=== PATIENT | male | born 1975 | race Caucasian/White ===

== ENCOUNTER 2020-08-01 13:52 | Emergency (ER) | payer BC ==
[2020-08-01 14:38] LABS: BASO # 0.1 10*3/uL (0.0-0.1); BASO % 0.5 % (0.0-1.0); EOS # 0.1 10*3/uL (0.0-0.4); EOS % 0.9 % (1.0-4.0); HEMATOCRIT 44.5 % (42.0-52.0); LYMPH # 1.2 10*3/uL (1.3-4.4); LYMPH % 12.9 % (27.0-41.0); MEAN CELL VOLUME 85.2 fl (80.0-94.0); MEAN CORPUSCULAR HGB 28.7 pg (27.0-31.0); MEAN CORPUSCULAR HGB CONC 33.7 g/dl (33.0-37.0); MONO # 0.6 10*3/uL (0.1-1.0); MONO % 5.9 % (3.0-9.0); NEUT # 7.4 10*3/uL (2.3-7.9); NEUT % 79.2 % (47.0-73.0); PLATELET COUNT AUTOMATED 280 10*3/uL (130-400); RED BLOOD COUNT 5.22 10*6/uL (4.50-5.90); RED CELL DISTRI WIDTH 12.4 % (0-14.5); WHITE BLOOD COUNT 9.3 10*3/uL (4.8-10.8)
[2020-08-01 15:10] LABS: ALBUMIN 3.6 gm/dl (3.1-4.5); ALKALINE PHOSPHATASE 108 U/L (45-117); BUN 14 mg/dl (7-24); CHLORIDE 104 mmol/L (98-107); POTASSIUM 4.1 mmol/L (3.5-5.1); SGOT/AST 15 IU/L (3-35); SGPT/ALT 24 U/L (12-78); SODIUM 138 mmol/L (136-145); TOTAL PROTEIN 7.7 gm/dL (6.4-8.2)
[2020-08-01 15:11] LABS: TROPONIN I < 0.015 ng/ml (<0.045)
[2020-08-01] MEDS ORDERED: GOOD NEIGHBOR M25 M1 PO (18:13)
[2020-08-02] MEDS ORDERED: LOSARTAN POTASS50 M1 PO (01:03)
[2020-08-02] MEDS ORDERED: COREG12.5 M1 PO (01:03)
== END 2020-08-01 18:23 | disposition home or self-care (01) ==
LOC: ED 13:52
PROVIDERS: Student in an Organized Health Care Education/Training Program
DX: I95.1 Orthostatic hypotension (principal); E86.0 Dehydration

== ENCOUNTER 2020-08-01 20:56 | Inpatient (IN) | payer BC ==
[~2020-08-01] VITALS: Ht 188 cm; Wt 129.3 kg
[~2020-08-01 20:56] MED LIST: GOOD NEIGHBOR M25 M1 PO
[2020-08-01 21:00] VITALS: BP 150/88
[2020-08-01 22:00] VITALS: BP 147/84
[2020-08-01 22:45] VITALS: BP 155/93
[2020-08-01 23:30] VITALS: BP 145/94
[2020-08-02] VITALS (8 sets, daily range): BP systolic 124–152; BP diastolic 76–92
[2020-08-02] MEDS ORDERED: COREG12.5 M1 PO (01:03)
[2020-08-02] MEDS ORDERED: LOSARTAN POTASS50 M1 PO (01:03)
[2020-08-02 06:25] LABS: CHOLESTEROL 236 mg/dL (<200); TRIGLYCERIDES 181 mg/dl (<150)
[2020-08-02 06:26] LABS: LDL CHOLESTEROL 159 mg/dL (9-159)
[2020-08-03] MEDS ORDERED: ASPIRIN ADULT L81 M2 PO (05:52)
[2020-08-03] MEDS ORDERED: METOPROLOL SUC100 M1 PO (05:52)
[2020-08-03] MEDS ORDERED: AMLODIPINE BESYL5 MG PO (05:52)
[2020-08-03] MEDS ORDERED: LIPITOR20 MG PO (05:52)
== END 2020-08-03 09:15 | disposition home or self-care (01) | DRG 78 ==
LOC: ED 20:56 → EDHOLD 23:38 → 5E 23:47
PROVIDERS: ADMIT Internal Medicine; ATTEND Internal Medicine
DX: I67.4 Hypertensive encephalopathy (principal); E87.2 Acidosis; I10 Essential (primary) hypertension; R42 Dizziness and giddiness; E86.0 Dehydration; E78.2 Mixed hyperlipidemia; Z82.49 Family history of ischemic heart disease and other diseases of the circulatory system; Z82.0 Family history of epilepsy and other diseases of the nervous system

== ENCOUNTER → 2020-08-27 | Outpatient (CLI) | payer BC ==
[~2020-08-27] MED LIST changes: +AMLODIPINE BESYL5 MG PO; +ASPIRIN ADULT L81 M2 PO; +COREG12.5 M1 PO; +LIPITOR20 MG PO; +LOSARTAN POTASS50 M1 PO; +METOPROLOL SUC100 M1 PO
== END | disposition home or self-care (01) ==
LOC: CARD 08:38
PROVIDERS: ATTEND Family Medicine
DX: I10 Essential (primary) hypertension (principal); R42 Dizziness and giddiness; R55 Syncope and collapse

== ENCOUNTER → 2020-09-15 | Outpatient (CLI) | payer BC | END | disposition home or self-care (01) | LOC: US 11:00 | PROVIDERS: ATTEND Family Medicine | DX: I65.23 Occlusion and stenosis of bilateral carotid arteries (principal); I10 Essential (primary) hypertension ==